=== PATIENT | female | born 1950 | race Caucasian/White ===

== ENCOUNTER → 2019-02-25 09:55 | Outpatient (CLI) | payer MEDICARE, OTHER, SELFPAY ==
--- NOTE | 2019-02-25 10:00 | DI.MG.S_ITS ---
BILATERAL DIGITAL SCREENING MAMMOGRAM 3D/2D WITH CAD: 02/25/2019 CLINICAL: Routine screening. Family history of breast cancer. Comparison is made to exams dated: 02/03/2017 mammogram, 09/13/2014 mammogram, and 07/26/2013 mammogram - [facility]. The tissue of both breasts is heterogeneously dense. This may lower the sensitivity of mammography. Current study was also evaluated with a Computer Aided Detection (CAD) system. There are benign calcifications in both breasts. No significant masses, calcifications, or other findings are seen in either breast. There has been no significant interval change. IMPRESSION: There is no mammographic evidence of malignancy. A 1 year screening mammogram is recommended. This exam was interpreted at Station ID: [id number]. NOTE: For mammograms, a report in lay terms will be sent to the patient. Approximately 15% of breast malignancies will not be visualized mammographically. In the management of a palpable breast mass, a negative mammogram must not discourage biopsy of a clinically suspicious lesion. Electronically Signed By: Sergio hair/deepak:02/27/2019 07:29:06 copy to: MABEL CORREA letter sent: Normal Exam ACR BI-RADS Category 2: Benign Finding(s) 3342F
== END ==
PROVIDERS: Family Provider Obstetrics & Gynecology; Visit Provider Physician Assistant Medical
DX: Z12.31 Encounter for screening mammogram for malignant neoplasm of breast (principal); Z80.3 Family history of malignant neoplasm of breast
CPT/HCPCS: 77063; 77067

== ENCOUNTER 2019-03-14 06:20 | Emergency (ER) | payer MEDICARE, OTHER, SELFPAY ==
[2019-03-14 06:16] VITALS: BP 158/81; PULSE 80; RESP 16; TEMP 36.9; O2SAT 97; BMI 33.8
--- NOTE | 2019-03-14 06:30 | DI.RAD.S_ITS ---
PROCEDURE: XR CHEST 1V INDICATIONS: New onset A fib TECHNIQUE: One view of the chest was acquired. COMPARISON: None. FINDINGS: Surgical changes and devices: None. Lungs and pleura: Lungs are clear. No pleural effusions or pneumothorax. Mediastinum: Mediastinal contours appear normal. Heart size is normal. Bones and chest wall: No suspicious bony lesions. Overlying soft tissues appear unremarkable. IMPRESSION: No acute cardiopulmonary disease process. Dictated by: Ping Jones MD, PhD on 03/14/2019 at 7:32 Approved by: Ping Jones MD, PhD on 03/14/2019 at 7:32
[2019-03-14] MEDS: ASPIRIN 81 MG TAB 324 MG PO (06:45)
--- NOTE | 2019-03-14 07:08 | ED.ARRPALP ---
HPI - Arrhythmia/Palpitations General Chief Complaint: Arrhythmia/Palpitations Stated Complaint: Palpitations Time Seen by Provider: 03/14/19 06:30 Source: patient and family Mode of arrival: ambulatory Limitations: no limitations History of Present Illness HPI narrative: 68-year-old female nonsmoker with history of hypertension presents with the chief complaint of palpitations upon waking this morning. She denies chest pain or shortness of breath. She denies any dietary or medication change. They called the paramedics and noted a newly discovered rapid atrial fibrillation which spontaneously resolved with insertion of an IV. She was brought to the emergency department for evaluation. She denies any dizziness, weakness or lightheadedness. MD complaint: rapid heart beat and palpitations Onset (ago): hour(s) Duration: now resolved Severity: moderate Context: occurred during rest Associated symptoms: denies other symptoms Related Data Home Medications Medication Instructions Recorded Confirmed losartan 25 mg PO QDAY #0 05/09/12 naproxen sodium 220 mg capsule 220 mg PO Q8-12H PRN 05/10/18 05/10/18 Allergies Allergy/AdvReac Type Severity Reaction Status Date / Time adhesive tape [ADHESIVE TAPE] Allergy Unknown Unverified 03/14/19 06:44 Review of Systems Constitutional Denies chills, Denies fever(s), Denies lethargy and Denies weakness Eyes Denies change in vision, Denies eye discharge, Denies irritation and Denies loss of vision ENT Ears, Nose, Mouth, and Throat: Denies change in voice, Denies neck pain and Denies sore throat Cardiovascular Denies chest pain, Reports irregular heart rhythm, Denies lightheadedness, Denies palpitations, Denies dyspnea, Denies dyspnea on exertion and Denies orthopnea Respiratory Denies cough, Denies dyspnea, Denies dyspnea on exertion and Denies wheezing Gastrointestinal Gastrointestinal: Denies abdominal pain, Denies change in bowel habits, Denies diarrhea, Denies nausea and Denies vomiting Genitourinary Denies hematuria, Denies flank pain, Denies urinary incontinence and Denies urinary urgency Musculoskeletal Denies neck pain Integumentary/Breasts Denies pruritus, Denies erythema, Denies rash and Denies wounds Neurologic Denies confusion, Denies loss of vision and Denies weakness Psychiatric Denies anxiety, Denies confusion, Denies depression, Denies homicidal ideation and Denies suicidal ideation Endocrine Denies palpitations Hematologic/Lymphatic Denies easy bruising Allergic/Immunologic Denies wheezing PFSH Medical History Hypertension (Chronic) Ovarian cancer (Resolved 2003) Surgical History History of third molar tooth extraction (Resolved 1974) S/P total abdominal hysterectomy and bilateral salpingo-oophorectomy (Resolved 2003) Status post laparoscopic cholecystectomy (Resolved 2002) Status post tubal ligation (Resolved 1987) Social History (System 05/06/18 @ 14:05 by Andrews Paul) Smoking Status: Never smoker Social History Smoking Status: Never smoker Exam Narrative Exam Narrative: GENERAL: 68-year-old female appears the counter than stated age, resting comfortably and in no significant distress HEAD: Atraumatic. Normocephalic. No temporal or scalp tenderness. EYES: Pupils equal round and reactive. Extraocular motions intact. No scleral icterus. No injection or drainage. ENT: Nose without bleeding, purulent drainage or septal hematoma. Throat without erythema, tonsillar hypertrophy or exudate. Uvula midline. Airway patent. NECK: Trachea midline. No JVD or lymphadenopathy. Supple, nontender, no meningeal signs. CARDIOVASCULAR: Regular rate and rhythm without murmurs, gallops, or rubs. RESPIRATORY: Clear to auscultation. Breath sounds equal bilaterally. No wheezes, rales, or rhonchi. GASTROINTESTINAL: Abdomen soft, non-tender, nondistended. No hepato-splenomegaly, or palpable masses. No guarding. EXTREMITIES: No clubbing, cyanosis, or edema. No joint tenderness, effusion, or edema noted. BACK: Nontender without deformity or crepitance. No flank tenderness. NEURO: AOx3. SKIN: No rash or erythema. Initial Vital Signs Initial Vital Signs: Vital Signs Temperature 98.4 F 03/14/19 06:16 Pulse Rate 80 03/14/19 06:16 Respiratory Rate 16 03/14/19 06:16 Blood Pressure 158/81 H 03/14/19 06:16 Pulse Oximetry 97 03/14/19 06:16 Scores CHADS-VASc Congestive heart failure: no Hypertension: yes Age 75 years or older: no Diabetes mellitus: no Stroke, TIA, or TE: no Vascular disease: no Age 65 to 74 years: yes Sex category (female): Female CHADS-VASc Score: 3 Course Orders Ordered: ED Orders 03/14/19 EKG-12 Lead Stat 03/14/19 06:30 XR chest 1V Stat EKG-12 Lead Stat 03/14/19 06:59 Basic Metabolic Panel Stat Complete Blood Count AUTO DIFF Stat Troponin & CK Cardiac Panel Stat 03/14/19 07:00 Urine Microscopic Stat Discontinued Medications Aspirin (Aspirin Chew) 324 mg PO NOW ONE Stop: 03/14/19 06:31 Last Admin: 03/14/19 06:45 Dose: 324 mg Vital Signs - 8 hr 03/14/19 06:16 03/14/19 07:35 Temperature 98.4 F Pulse Rate 80 63 Respiratory Rate 16 16 Blood Pressure 158/81 H Blood Pressure [Right Arm] 144/80 H Pulse Oximetry 97 98 MDM - Arrhythmia/Palpitations Lab Data Result diagrams: 03/14/19 06:59 03/14/19 06:59 Lab Results 03/14/19 03/14/19 03/14/19 Range/Units 06:59 06:59 07:00 WBC 5.0 (4.5-11.0) X10^3/uL RBC 4.94 (4.0-5.2) X10^6/uL Hgb 14.4 (12.0-16.0) g/dL Hct 42.7 (36-46) % MCV 86.5 (80-100) fL MCH 29.2 (26-34) PG MCHC 33.8 (30-36) % RDW 14.0 (11.6-14.8) % Plt Count 232 (150-400) X10^3/uL Neut % (Auto) 66.4 (50-75) % Lymph % (Auto) 24.7 L (25-40) % [place] % (Auto) 6.9 (3-14) % Eos % (Auto) 1.5 L (2-4) % Baso % (Auto) 0.5 (0-2) % Neut # (Auto) 3300 (1904-4367) /uL Lymph # (Auto) 1200 (5988-6762) /uL [place] # (Auto) 300 (0-900) /uL Eos # (Auto) 100 (0-450) /uL Baso # (Auto) 0 (0-100) /uL Sodium 141 (137-145) mmol/L Potassium 3.9 (3.4-5.1) mmol/L Chloride 105 (98-107) mmol/L Carbon Dioxide 25 (22-32) mmol/L BUN 14 (7-17) mg/dL Creatinine 0.80 (0.52-1.04) mg/dL Estimated GFR > 60.0 (>60) mL/min BUN/Creatinine Ratio 17.5 (6-22) Glucose 108 (80-110) mg/dL Calcium 10.2 (8.4-10.2) mg/dL Total Bilirubin Cancelled AST Cancelled ALT Cancelled Alkaline Phosphatase Cancelled Total Creatine Kinase 110 (30-135) U/L CK-MB (CK-2) 1.57 (<2.37) ng/mL CK-MB (CK-2) Rel Index 1.4 L (1.5-5.0) % Troponin I < 0.012 (0.01-0.034) ng/mL Total Protein Cancelled Albumin Cancelled Globulin Cancelled Albumin/Globulin Ratio Cancelled Lipase Cancelled Urine RBC None seen (0-5/HPF) Urine WBC None seen (0-5/HPF) Urine Bacteria Occasional (0-1) (None) Ur Culture Indicated? Cult not indicated Urine Dip Bedside Urine Glucose Negative Bedside Urine Bilirubin - Negative Bedside Urine Ketone +/- 5 Urine Specific [place] 1.015 Bedside Urine Occult Blood +/- Bedside Urine pH 6.0 Bedside Urine Protein - Negative Bedside Urine Urobilinogen - Negative Bedside Urine Nitrite - Negative Bedside Urine Leukocytes - Negative Esterase Imaging Data Chest x-ray: Radiologist's impression: [address] [address] XRay Report Signed Patient: Bethanie Barragan JMR#: [id number] : 2Acct:[id number] Age/Sex: 68 / FDate of Service: 03/14/19 Loc: ED Accession Number: [id number] Procedure: XR chest 1V Ordering Provider: Brandon Nunez MD PROCEDURE: XR CHEST 1V INDICATIONS: New onset A fib TECHNIQUE: One view of the chest was acquired. COMPARISON: None. FINDINGS: Surgical changes and devices: None. Lungs and pleura: Lungs are clear. No pleural effusions or pneumothorax. Mediastinum: Mediastinal contours appear normal. Heart size is normal. Bones and chest wall: No suspicious bony lesions. Overlying soft tissues appear unremarkable. IMPRESSION: No acute cardiopulmonary disease process. Dictated by: Ping Jones MD, PhD on 03/14/2019 at 7:32 Approved by: Ping Jones MD, PhD on 03/14/2019 at 7:32 [facility] Narrative Medical decision making narrative: 68-year-old female with newly discovered atrial fibrillation, spontaneously resolved prior to arrival. EKG sinus rhythm at 75 beats per minute without signs of ectopy or ischemia. Labs are unremarkable and patient remains asymptomatic. She already has an appointment to see her PCP this afternoon. We discussed the possibility of rate control as well as anticoagulation and both agreed to defer to the primary care provider this afternoon. I did state that 1 scoring system would suggest she needs aspirin only yet another would suggest anticoagulation is appropriate and to be prepared for this discussion this afternoon. She has been given appropriate return precautions and she and have had questions answered to their apparent satisfaction Discharge Plan Departure Patient Disposition: Home Clinical Impression: Atrial fibrillation Qualifiers: Atrial fibrillation type: paroxysmal Qualified Code(s): I48.0 - Paroxysmal atrial fibrillation Instructions: DI for Atrial Fibrillation Activity Restrictions/Additional Instructions: *You have been diagnosed with [ newly discovered Atrial Fibrillation ] *What to do: *Take medications as directed: At your visit you will likely talk about the potential of adding medications which control your heart rate. Additionally, there will be discussion about anticoagulation (blood thinners) and whether or not to start them. Additionally, they may want to perform additional studies to evaluate your new A Fib such as an echocardiogram. *Follow up with your primary care provider this afternoon as planned. Let them know you were seen in the Emergency Department and that we ask that you be seen in follow up *Return to ER if you should have any new, worsening or concerning symptoms ] Prescriptions: No Action losartan 25 MG tablet 25 mg PO QDAY Qty: 0 RF: 0 naproxen sodium [Aleve] 220 mg capsule 220 mg PO Q8-12H PRNRF: 0
[2019-03-14 07:11] LABS: Add Manual Diff / Slide Review NO; Basophils Absolute Auto 0 /uL (0-100); Basophils Percent Auto 0.5 % (0-2); Eosinophils Absolute Auto 100 /uL (0-450); Eosinophils Percent Auto 1.5 % (2-4); Hematocrit 42.7 % (36-46); Hemoglobin 14.4 g/dL (12.0-16.0); Lymphocytes Absolute Auto 1200 /uL (1100-4500); Lymphocytes Percent Auto 24.7 % (25-40); Mean Corpuscular HGB Conc 33.8 % (30-36); Mean Corpuscular Hemoglobin 29.2 PG (26-34); Mean Corpuscular Volume 86.5 fL (80-100); Monocytes Absolute Auto 300 /uL (0-900); Monocytes Percent Auto 6.9 % (3-14); Neutrophils Absolute Auto 3300 /uL (1500-7000); Neutrophils Percent Auto 66.4 % (50-75); Platelet Count 232 X10^3/uL (150-400); Red Blood Cell Count 4.94 X10^6/uL (4.0-5.2)
[2019-03-14 07:16] LABS: RBC Urine None Seen (0-5/HPF); WBC Urine None Seen (0-5/HPF)
[2019-03-14 07:17] LABS: BUN Creatinine Ratio 17.5 (6-22); Blood Urea Nitrogen 14 mg/dL (7-17); Calcium 10.2 mg/dL (8.4-10.2); Carbon Dioxide 25 mmol/L (22-32); Chloride 105 mmol/L (98-107); Creatine Kinase 110 U/L (30-135); Estimated Glomerular Filt Rate > 60.0 mL/min (>60); Glucose 108 mg/dL (80-110); HEMOLYSIS < 15 (0-50); Potassium 3.9 mmol/L (3.4-5.1); Sodium 141 mmol/L (137-145)
[2019-03-14 07:26] LABS: Bacteria Urine Occasional (0-1); Culture Indicated Urine Cult Not Indicated
[2019-03-14 07:29] LABS: Troponin I < 0.012 ng/mL (0.01-0.034)
[2019-03-14 07:32] LABS: CKMB % Relative Index 1.4 % (1.5-5.0); Creatine Kinase MB 1.57 ng/mL (<2.37)
[2019-03-14 07:35] VITALS: BP 144/80; PULSE 63; RESP 16; O2SAT 98
--- NOTE | 2019-03-14 07:37 | ED_ITS ---
HPI - Arrhythmia/Palpitations General Chief Complaint: Arrhythmia/Palpitations Stated Complaint: Palpitations Time Seen by Provider: 03/14/19 06:30 Source: patient and family Mode of arrival: ambulatory Limitations: no limitations History of Present Illness HPI narrative: 68-year-old female nonsmoker with history of hypertension presents with the chief complaint of palpitations upon waking this morning. She denies chest pain or shortness of breath. She denies any dietary or medication change. They called the paramedics and noted a newly discovered rapid atrial fibrillation which spontaneously resolved with insertion of an IV. She was brought to the emergency department for evaluation. She denies any dizziness, weakness or lightheadedness. MD complaint: rapid heart beat and palpitations Onset (ago): hour(s) Duration: now resolved Severity: moderate Context: occurred during rest Associated symptoms: denies other symptoms Related Data Home Medications Medication Instructions Recorded Confirmed losartan 25 mg PO QDAY #0 05/09/12 naproxen sodium 220 mg capsule 220 mg PO Q8-12H PRN 05/10/18 05/10/18 Allergies Allergy/AdvReac Type Severity Reaction Status Date / Time adhesive tape [ADHESIVE TAPE] Allergy Unknown Unverified 03/14/19 06:44 Review of Systems Constitutional Denies chills, Denies fever(s), Denies lethargy and Denies weakness Eyes Denies change in vision, Denies eye discharge, Denies irritation and Denies loss of vision ENT Ears, Nose, Mouth, and Throat: Denies change in voice, Denies neck pain and Denies sore throat Cardiovascular Denies chest pain, Reports irregular heart rhythm, Denies lightheadedness, Denies palpitations, Denies dyspnea, Denies dyspnea on exertion and Denies orthopnea Respiratory Denies cough, Denies dyspnea, Denies dyspnea on exertion and Denies wheezing Gastrointestinal Gastrointestinal: Denies abdominal pain, Denies change in bowel habits, Denies diarrhea, Denies nausea and Denies vomiting Genitourinary Denies hematuria, Denies flank pain, Denies urinary incontinence and Denies urinary urgency Musculoskeletal Denies neck pain Integumentary/Breasts Denies pruritus, Denies erythema, Denies rash and Denies wounds Neurologic Denies confusion, Denies loss of vision and Denies weakness Psychiatric Denies anxiety, Denies confusion, Denies depression, Denies homicidal ideation and Denies suicidal ideation Endocrine Denies palpitations Hematologic/Lymphatic Denies easy bruising Allergic/Immunologic Denies wheezing PFSH Medical History Hypertension (Chronic) Ovarian cancer (Resolved 2003) Surgical History History of third molar tooth extraction (Resolved 1974) S/P total abdominal hysterectomy and bilateral salpingo-oophorectomy (Resolved 2003) Status post laparoscopic cholecystectomy (Resolved 2002) Status post tubal ligation (Resolved 1987) Social History (System 05/06/18 @ 14:05 by Andrews Paul) Smoking Status: Never smoker Social History Smoking Status: Never smoker Exam Narrative Exam Narrative: GENERAL: 68-year-old female appears the counter than stated age, resting comfortably and in no significant distress HEAD: Atraumatic. Normocephalic. No temporal or scalp tenderness. EYES: Pupils equal round and reactive. Extraocular motions intact. No scleral icterus. No injection or drainage. ENT: Nose without bleeding, purulent drainage or septal hematoma. Throat without erythema, tonsillar hypertrophy or exudate. Uvula midline. Airway patent. NECK: Trachea midline. No JVD or lymphadenopathy. Supple, nontender, no meningeal signs. CARDIOVASCULAR: Regular rate and rhythm without murmurs, gallops, or rubs. RESPIRATORY: Clear to auscultation. Breath sounds equal bilaterally. No wheezes, rales, or rhonchi. GASTROINTESTINAL: Abdomen soft, non-tender, nondistended. No hepato- splenomegaly, or palpable masses. No guarding. EXTREMITIES: No clubbing, cyanosis, or edema. No joint tenderness, effusion, or edema noted. BACK: Nontender without deformity or crepitance. No flank tenderness. NEURO: AOx3. SKIN: No rash or erythema. Initial Vital Signs Initial Vital Signs: Vital Signs Temperature 98.4 F 03/14/19 06:16 Pulse Rate 80 03/14/19 06:16 Respiratory Rate 16 03/14/19 06:16 Blood Pressure 158/81 H 03/14/19 06:16 Pulse Oximetry 97 03/14/19 06:16 Scores CHADS-VASc Congestive heart failure: no Hypertension: yes Age 75 years or older: no Diabetes mellitus: no Stroke, TIA, or TE: no Vascular disease: no Age 65 to 74 years: yes Sex category (female): Female CHADS-VASc Score: 3 Course Orders Ordered: ED Orders 03/14/19 EKG-12 Lead Stat 03/14/19 06:30 XR chest 1V Stat EKG-12 Lead Stat 03/14/19 06:59 Basic Metabolic Panel Stat Complete Blood Count AUTO DIFF Stat Troponin & CK Cardiac Panel Stat 03/14/19 07:00 Urine Microscopic Stat Discontinued Medications Aspirin (Aspirin Chew) 324 mg PO NOW ONE Stop: 03/14/19 06:31 Last Admin: 03/14/19 06:45 Dose: 324 mg Vital Signs - 8 hr 03/14/19 06:16 03/14/19 07:35 Temperature 98.4 F Pulse Rate 80 63 Respiratory Rate 16 16 Blood Pressure 158/81 H Blood Pressure [Right Arm] 144/80 H Pulse Oximetry 97 98 MDM - Arrhythmia/Palpitations Lab Data Result diagrams: 03/14/19 06:59 03/14/19 06:59 Lab Results 03/14/19 03/14/19 03/14/19 Range/Units 06:59 06:59 07:00 WBC 5.0 (4.5-11.0) X10^3/uL RBC 4.94 (4.0-5.2) X10^6/uL Hgb 14.4 (12.0-16.0) g/dL Hct 42.7 (36-46) % MCV 86.5 (80-100) fL MCH 29.2 (26-34) PG MCHC 33.8 (30-36) % RDW 14.0 (11.6-14.8) % Plt Count 232 (150-400) X10^3/uL Neut % (Auto) 66.4 (50-75) % Lymph % (Auto) 24.7 L (25-40) % [place] % (Auto) 6.9 (3-14) % Eos % (Auto) 1.5 L (2-4) % Baso % (Auto) 0.5 (0-2) % Neut # (Auto) 3300 (1771-0557) /uL Lymph # (Auto) 1200 (6769-1725) /uL [place] # (Auto) 300 (0-900) /uL Eos # (Auto) 100 (0-450) /uL Baso # (Auto) 0 (0-100) /uL Sodium 141 (137-145) mmol/L Potassium 3.9 (3.4-5.1) mmol/L Chloride 105 (98-107) mmol/L Carbon Dioxide 25 (22-32) mmol/L BUN 14 (7-17) mg/dL Creatinine 0.80 (0.52-1.04) mg/dL Estimated GFR > 60.0 (>60) mL/min BUN/Creatinine Ratio 17.5 (6-22) Glucose 108 (80-110) mg/dL Calcium 10.2 (8.4-10.2) mg/dL Total Bilirubin Cancelled AST Cancelled ALT Cancelled Alkaline Phosphatase Cancelled Total Creatine Kinase 110 (30-135) U/L CK-MB (CK-2) 1.57 (<2.37) ng/mL CK-MB (CK-2) Rel Index 1.4 L (1.5-5.0) % Troponin I < 0.012 (0.01-0.034) ng/mL Total Protein Cancelled Albumin Cancelled Globulin Cancelled Albumin/Globulin Ratio Cancelled Lipase Cancelled Urine RBC None seen (0-5/HPF) Urine WBC None seen (0-5/HPF) Urine Bacteria Occasional (0-1) (None) Ur Culture Indicated? Cult not indicated Urine Dip Bedside Urine Glucose Negative Bedside Urine Bilirubin - Negative Bedside Urine Ketone +/- 5 Urine Specific [place] 1.015 Bedside Urine Occult Blood +/- Bedside Urine pH 6.0 Bedside Urine Protein - Negative Bedside Urine Urobilinogen - Negative Bedside Urine Nitrite - Negative Bedside Urine Leukocytes - Negative Esterase Imaging Data Chest x-ray: Radiologist's impression: [address] [address] XRay Report Signed Patient: Bethanie Barragan JMR#: [id number] : 2Acct:[id number] Age/Sex: 68 / FDate of Service: 03/14/19 Loc: ED Accession Number: [id number] Procedure: XR chest 1V Ordering Provider: Brandon Nunez MD PROCEDURE: XR CHEST 1V INDICATIONS: New onset A fib TECHNIQUE: One view of the chest was acquired. COMPARISON: None. FINDINGS: Surgical changes and devices: None. Lungs and pleura: Lungs are clear. No pleural effusions or pneumothorax. Mediastinum: Mediastinal contours appear normal. Heart size is normal. Bones and chest wall: No suspicious bony lesions. Overlying soft tissues appear unremarkable. IMPRESSION: No acute cardiopulmonary disease process. Dictated by: Ping Jones MD, PhD on 03/14/2019 at 7:32 Approved by: Ping Jones MD, PhD on 03/14/2019 at 7:32 [facility] Narrative Medical decision making narrative: 68-year-old female with newly discovered atrial fibrillation, spontaneously resolved prior to arrival. EKG sinus rhythm at 75 beats per minute without signs of ectopy or ischemia. Labs are unremarkable and patient remains asymptomatic. She already has an appointment to see her PCP this afternoon. We discussed the possibility of rate control as well as anticoagulation and both agreed to defer to the primary care provider this afternoon. I did state that 1 scoring system would suggest she needs aspirin only yet another would suggest anticoagulation is appropriate and to be prepared for this discussion this afternoon. She has been given appropriate return precautions and she and have had questions answered to their apparent satisfaction Discharge Plan Departure Patient Disposition: Home Clinical Impression: Atrial fibrillation Qualifiers: Atrial fibrillation type: paroxysmal Qualified Code(s): I48.0 - Paroxysmal atrial fibrillation Instructions: DI for Atrial Fibrillation Activity Restrictions/Additional Instructions: *You have been diagnosed with [ newly discovered Atrial Fibrillation ] *What to do: *Take medications as directed: At your visit you will likely talk about the potential of adding medications which control your heart rate. Additionally, there will be discussion about anticoagulation (blood thinners) and whether or not to start them. Additionally, they may want to perform additional studies to evaluate your new A Fib such as an echocardiogram. *Follow up with your primary care provider this afternoon as planned. Let them know you were seen in the Emergency Department and that we ask that you be seen in follow up *Return to ER if you should have any new, worsening or concerning symptoms ] Prescriptions: No Action losartan 25 MG tablet 25 mg PO QDAY Qty: 0 RF: 0 naproxen sodium [Aleve] 220 mg capsule 220 mg PO Q8-12H PRNRF: 0
== END 2019-03-14 08:14 | disposition home or self-care (01) ==
PROVIDERS: Emergency Medicine; Emergency Provider Emergency Medicine; Family Provider Obstetrics & Gynecology
DX: I48.0 Paroxysmal atrial fibrillation (principal)
CPT/HCPCS: 36415; 71045; 80048; 81003; 81015; 82550; 82553; 84484; 85025; 93005; 93010; 99283; 99285

== ENCOUNTER 2020-09-12 02:01 | Emergency (ER) | payer MEDICARE, OTHER, SELFPAY ==
[2020-09-12] VITALS (13 sets, daily range): BP systolic 125–176; BP diastolic 70–135; PULSE 62–150; RESP 17–27; O2SAT 97–99
--- NOTE | 2020-09-12 02:06 | ED.ARRPALP ---
HPI - Arrhythmia/Palpitations General Chief Complaint: Arrhythmia/Palpitations Stated Complaint: states is in afib Time Seen by Provider: 09/12/20 02:05 History of Present Illness HPI narrative: 69-year-old woman with a history of ovarian cancer 15 years ago and a single episode of atrial fibrillation approximately year and half ago presents with atrial fibrillation that started at 12:30 p.m. this morning she got up from bed to go to the bathroom as she was going back into bed noticed her heart fluttering. This was not associated with chest pain, dyspnea or abdominal pain. She denies any recent fevers, cough, chills, abdominal pain, urinary symptoms. She has had no recent dyspnea, orthopnea. She notes that she recently stopped her 12.5 mg of metoprolol and was never on an anticoagulant. She had been on a baby aspirin. She is followed by a providers it would be health and does not have a customer support professional established home. Related Data Home Medications Medication Instructions Recorded Confirmed losartan 25 mg PO QDAY #0 05/09/12 naproxen sodium 220 mg capsule 220 mg PO Q8-12H PRN 05/10/18 05/10/18 Previous Rx's Medication Instructions Recorded carvedilol [Coreg] 3.125 mg PO BID #60 tab 09/12/20 Allergies Allergy/AdvReac Type Severity Reaction Status Date / Time adhesive tape [ADHESIVE TAPE] Allergy Unknown Unverified 03/14/19 06:44 Review of Systems Review of Systems Narrative: Remainder of review of systems including constitutional, ENT, cardiovascular, respiratory, GI, , musculoskeletal, skin, neurologic and psychiatric systems reviewed and are unremarkable except as noted in HPI. Patient History Medical History Hypertension (Chronic) Ovarian cancer (Resolved 2003) Paroxysmal atrial fibrillation (Acute) Surgical History History of third molar tooth extraction (Resolved 1974) S/P total abdominal hysterectomy and bilateral salpingo-oophorectomy (Resolved 2003) Status post laparoscopic cholecystectomy (Resolved 2002) Status post tubal ligation (Resolved 1987) Social History Smoking Status: Never smoker Smoking Status: Never smoker Substance Use Type: does not use Exam Narrative Exam Narrative: General: Healthy appearing, in no acute distress. Able to give a complete and coherent history. Well-nourished well-developed HEENT: Moist mucous membranes, normal sclera with reactive pupils, Neck: No JVD, supple Respiratory: Lungs are clear to auscultation, no wheezing no rales no rhonchi. Full and symmetrical air movement Cardiac: Regular rate and rhythm no murmurs no bruits Abdomen: Soft nontender good bowel tones, no flank pain Skin: Warm and dry, no rashes Neurologic: Grossly neurologically intact with no obvious asymmetries or abnormalities Extremities: No trauma, well perfused Psych: Cooperative, appropriate insight and affect Initial Vital Signs Initial Vital Signs: Vital Signs Pulse Rate 150 H 09/12/20 02:05 Respiratory Rate 20 09/12/20 02:05 Blood Pressure 171/135 H 09/12/20 02:05 Pulse Oximetry 98 09/12/20 02:05 Procedures Cardioversion Consent Signed: Yes Indication: Atrial fibrillation with rapid ventricular response Stability: Stable Number of attempts (shocks): 1 Joules used: 100 (Synchronized) Cardiac rhythm post-cardioversion: Sinus rhythm Additional Comments: Tolerated well Procedural Sedation Consent signed: Yes Time out performed: Yes Indication: cardioversion ASA Class: II Mallampati Airway Classification: Class II Time of Last PO Intake: 19:00 Preparation: monitoring and evaluation advisor applied, pulse oximeter, capnometry used, suction/airway equipment at bedside and IV secured IV Propofol dose (mg): 40 Intraservice time/total sedation time (min): 7 ED Sedation Level: Moderate (Concious) Patient Tolerated Procedure: Well Complications: none Course Orders Ordered: ED Orders 09/12/20 02:15 XR chest 1V Stat Complete Blood Count AUTO DIFF Stat Comprehensive Metabolic Panel Stat Magnesium Stat Thyroid Stimulating Hormone Stat Troponin & CK Cardiac Panel Stat EKG-12 Lead Stat Discontinued Medications Sodium Chloride (Normal Saline 0.9%) 1,000 mls @ 150 mls/hr IV CONT ZAINA Last Infusion: 09/12/20 04:53 Dose: 0 mls/hr Documented by: Admin: 09/12/20 02:23 Dose: 150 mls/hr Documented by: FAWAD Metoprolol Tartrate (Lopressor) 5 mg IV NOW ONE Stop: 09/12/20 02:16 Last Admin: 09/12/20 02:22 Dose: 5 mg Documented by: FAWAD Propofol (Diprivan) 40 mg 0.5 mg/kg (40 mg) IV NOW ONE Stop: 09/12/20 03:36 Last Admin: 09/12/20 03:52 Dose: 40 mg Documented by: WERO Vital Signs Vital signs: Vital Signs - 8 hr 09/12/20 02:05 09/12/20 02:37 09/12/20 03:00 Pulse Rate 150 H 92 H 83 Respiratory Rate 20 18 18 Blood Pressure 171/135 H 176/80 H 140/97 H Pulse Oximetry 98 98 98 09/12/20 03:45 09/12/20 03:46 09/12/20 03:50 Pulse Rate 136 H 137 H 143 H Respiratory Rate 22 25 H 26 H Blood Pressure 174/97 H 165/96 H Pulse Oximetry 98 98 99 09/12/20 03:55 09/12/20 04:00 09/12/20 04:06 Pulse Rate 76 71 67 Respiratory Rate 25 H 27 H 23 Blood Pressure 144/70 H 141/75 H 139/86 Pulse Oximetry 98 98 98 09/12/20 04:10 09/12/20 04:15 09/12/20 04:20 Pulse Rate 66 64 62 Respiratory Rate 17 20 20 Blood Pressure 136/79 125/80 132/79 Pulse Oximetry 98 99 99 09/12/20 04:25 Pulse Rate 64 Respiratory Rate 19 Blood Pressure 130/80 Pulse Oximetry 97 MDM - Arrhythmia/Palpitations Medical Records Attestation: I reviewed the patient's medical records. Lab Data Attestation: I reviewed the patient's lab results. Result diagrams: 09/12/20 02:15 09/12/20 02:15 Labs: Lab Results 09/12/20 09/12/20 09/12/20 Range/Units 02:15 02:15 02:15 WBC 7.5 (4.5-11.0) X10^3/uL RBC 5.07 (4.0-5.2) X10^6/uL Hgb 14.6 (12.0-16.0) g/dL Hct 44.3 (36-46) % MCV 87.4 (80-100) fL MCH 28.9 (26-34) PG MCHC 33.0 (30-36) % RDW 14.9 H (11.6-14.8) % Plt Count 230 (150-400) X10^3/uL Neut % (Auto) 58.1 (50-75) % Lymph % (Auto) 31.8 (25-40) % [place] % (Auto) 7.5 (3-14) % Eos % (Auto) 2.0 (2-4) % Baso % (Auto) 0.6 (0-2) % Neut # (Auto) 4400 (9801-6882) /uL Lymph # (Auto) 2400 (9826-9180) /uL [place] # (Auto) 600 (0-900) /uL Eos # (Auto) 100 (0-450) /uL Baso # (Auto) 0 (0-100) /uL Sodium 140 (137-145) mmol/L Potassium 4.0 (3.4-5.1) mmol/L Chloride 107 (98-107) mmol/L Carbon Dioxide 28 (22-32) mmol/L BUN 24 H (7-17) mg/dL Creatinine 0.86 (0.52-1.04) mg/dL Estimated GFR > 60.0 (>60) mL/min BUN/Creatinine Ratio 27.9 H (6-22) Glucose 111 H (80-110) mg/dL Calcium 10.2 (8.4-10.2) mg/dL Magnesium 2.3 (1.6-2.3) mg/dL Total Bilirubin 0.6 (0.2-1.3) mg/dL AST 31 (14-36) IU/L ALT 27 (<35) IU/L Alkaline Phosphatase 74 (38-126) U/L Total Creatine Kinase 134 (30-135) U/L CK-MB (CK-2) 1.81 (<2.37) ng/mL CK-MB (CK-2) Rel Index 1.4 L (1.5-5.0) % Troponin I < 0.012 (0.01-0.034) ng/mL Total Protein 8.1 (6.3-8.2) g/dL Albumin 4.5 (3.5-5.0) g/dL Globulin 3.6 (1.7-4.1) g/dL Albumin/Globulin Ratio 1.3 (1.0-2.8) TSH 4.03 (0.47-4.68) uIU/mL Point of Care Testing Test Results Not applicable ECG Data Attestation: I personally reviewed and interpreted this ECG as follows: Interpretation: Atrial fibrillation at a rate of [address] T wave abnormalities No acute ischemia #2 post Electrical Cardioversion: Sinus rhythm at a rate of 74 Normal axis, normal interval No acute ischemic changes MDM Narrative Medical decision making narrative: 69-year-old woman with acute onset paroxysmal atrial fibrillation at 12:30 p.m. tonight. Labs are unremarkable and she remains in a rapid ventricular response after 3 hours of observation. After consent was obtained, adequate sedation achieved with 40 mg of propofol, synchronized shock was administered with conversion to sinus rhythm. Patient tolerated well. After adequate conscious sedation recovery time she is discharged home in stable condition. Discharge Plan Departure Patient Disposition: Home Clinical Impression: Paroxysmal atrial fibrillation Discharge Date/Time: 09/12/20 04:40 Instructions: DI for Atrial Fibrillation, DI for Moderate Sedation Activity Restrictions/Additional Instructions: Thank you for coming in this evening We had a shockingly good experience today ;) You were in atrial fibrillation again at a rate of about 150. You are tolerating it well however with the acute onset very clearly identified at 12:30 p.m. this evening urine excellent candidate for cardioversion. This was done without incident and you are now back in normal sinus rhythm. You will also benefit from restarting the beta min. Since you had difficulties with side effects for the metoprolol am going to suggest we try Coreg at 3.25 mg a.m. and p.m.. 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 You also need to restart taking a baby aspirin daily. If you feel yourself returning to a fluttery feeling, recurrent atrial fibrillation please return to the emergency department. You will need to follow-up with your primary care physician within the next 1-2 weeks. Please let them know that you have started Coreg I wish you the best Prescriptions: New carvedilol [Coreg] 3.125 mg tablet 3.125 mg PO BID Qty: 60 RF: 0 No Action losartan 25 MG tablet 25 mg PO QDAY Qty: 0 RF: 0 naproxen sodium [Aleve] 220 mg capsule 220 mg PO Q8-12H PRNRF: 0
--- NOTE | 2020-09-12 02:15 | DI.RAD.S_ITS ---
PROCEDURE: XR CHEST 1V INDICATIONS: new afib TECHNIQUE: One view of the chest was acquired. COMPARISON: [facility], CR, XR CHEST 1V, 03/14/2019, 6:41. FINDINGS: Surgical changes and devices: None. Lungs and pleura: Lungs are clear. No pleural effusions or pneumothorax. Mediastinum: Mediastinal contours appear normal. Heart size is normal. Bones and chest wall: No suspicious bony lesions. Overlying soft tissues appear unremarkable. IMPRESSION: Normal for age, source of current atrial fibrillation symptoms is not seen. Dictated by: Noel Ryan M.D. on 09/12/2020 at 8:47 Approved by: Noel Ryan M.D. on 09/12/2020 at 8:47
[2020-09-12] MEDS: METOPROLOL TARTRATE 5 MG/5 ML INJ IV (02:22)
[2020-09-12] MEDS: SODIUM CHLORIDE 0.9% 1,000 ML 150 ML IV (02:23)
[2020-09-12 02:26] LABS: Add Manual Diff / Slide Review NO; Basophils Absolute Auto 0 /uL (0-100); Basophils Percent Auto 0.6 % (0-2); Eosinophils Absolute Auto 100 /uL (0-450); Hematocrit 44.3 % (36-46); Hemoglobin 14.6 g/dL (12.0-16.0); Lymphocytes Absolute Auto 2400 /uL (1100-4500); Lymphocytes Percent Auto 31.8 % (25-40); Mean Corpuscular Hemoglobin 28.9 PG (26-34); Mean Corpuscular Volume 87.4 fL (80-100); Monocytes Absolute Auto 600 /uL (0-900); Monocytes Percent Auto 7.5 % (3-14); Neutrophils Absolute Auto 4400 /uL (1500-7000); Neutrophils Percent Auto 58.1 % (50-75); Platelet Count 230 X10^3/uL (150-400); Red Blood Cell Count 5.07 X10^6/uL (4.0-5.2); Red Cell Distribution Width 14.9 % (11.6-14.8); White Blood Cell Count 7.5 X10^3/uL (4.5-11.0)
[2020-09-12 02:46] LABS: Alanine Aminotransferase 27 IU/L (<35); Albumin 4.5 g/dL (3.5-5.0); Albumin Globulin Ratio 1.3 (1.0-2.8); Alkaline Phosphatase 74 U/L (38-126); Aspartate Aminotransferase 31 IU/L (14-36); BUN Creatinine Ratio 27.9 (6-22); Bilirubin Total 0.6 mg/dL (0.2-1.3); Blood Urea Nitrogen 24 mg/dL (7-17); Calcium 10.2 mg/dL (8.4-10.2); Carbon Dioxide 28 mmol/L (22-32); Chloride 107 mmol/L (98-107); Creatine Kinase 134 U/L (30-135); Estimated Glomerular Filt Rate > 60.0 mL/min (>60); Globulin 3.6 g/dL (1.7-4.1); Glucose 111 mg/dL (80-110); HEMOLYSIS 25 (0-50); Magnesium 2.3 mg/dL (1.6-2.3); Sodium 140 mmol/L (137-145); Total Protein 8.1 g/dL (6.3-8.2)
[2020-09-12 02:58] LABS: Troponin I < 0.012 ng/mL (0.01-0.034)
[2020-09-12 03:02] LABS: CKMB % Relative Index 1.4 % (1.5-5.0); Creatine Kinase MB 1.81 ng/mL (<2.37)
[2020-09-12 03:17] LABS: Thyroid Stimulating Hormone 4.03 uIU/mL (0.47-4.68)
[2020-09-12] MEDS: propofoL 200 MG/20 ML VIAL 40 MG IV (03:52)
== END 2020-09-12 04:40 | disposition home or self-care (01) ==
PROVIDERS: Emergency Provider Emergency Medicine; Family Provider Obstetrics & Gynecology
DX: I48.0 Paroxysmal atrial fibrillation (principal); Z79.01 Long term (current) use of anticoagulants
CPT/HCPCS: 36415; 71045; 80053; 82550; 82553; 83735; 84443; 84484; 85025; 92960; 93005; 96361; 96374; 99285; 99291; J2704

== ENCOUNTER → 2021-08-25 12:20 | Outpatient (CLI) | payer MEDICARE, OTHER, SELFPAY ==
--- NOTE | 2021-08-25 12:21 | DI.MG.S_ITS ---
BILATERAL DIGITAL SCREENING MAMMOGRAM 3D/2D WITH CAD: 08/25/2021 CLINICAL: Routine screening. Family history of breast cancer. Comparison is made to exams dated: 02/25/2019 mammogram, 02/03/2017 mammogram, and 09/13/2014 mammogram - [facility]. The tissue of both breasts is heterogeneously dense. This may lower the sensitivity of mammography. Current study was also evaluated with a Computer Aided Detection (CAD) system. There are benign calcifications in both breasts. There also are benign vascular calcifications in both breasts. No significant masses, calcifications, or other findings are seen in either breast. There has been no significant interval change. IMPRESSION: BENIGN There is no mammographic evidence of malignancy. A 1 year screening mammogram is recommended. This exam was interpreted at Station ID: [id number]. NOTE: For mammograms, a report in lay terms will be sent to the patient. Approximately 15% of breast malignancies will not be visualized mammographically. In the management of a palpable breast mass, a negative mammogram must not discourage biopsy of a clinically suspicious lesion. Electronically Signed By: Cherie farfan/deepak:08/25/2021 15:03:03 copy to: MABEL CORREA letter sent: Normal Exam ACR BI-RADS Category 2: Benign Finding(s) 3342F
== END ==
PROVIDERS: Family Provider Obstetrics & Gynecology; Referring Provider Obstetrics & Gynecology; Visit Provider Obstetrics & Gynecology
DX: Z12.31 Encounter for screening mammogram for malignant neoplasm of breast (principal); Z80.3 Family history of malignant neoplasm of breast
CPT/HCPCS: 77063; 77067

== ENCOUNTER → 2023-09-18 09:36 | Outpatient (CLI) | payer MEDICARE, OTHER, SELFPAY ==
--- NOTE | 2023-09-18 09:37 | DI.MG.S_ITS ---
BILATERAL DIGITAL SCREENING MAMMOGRAM 3D/2D WITH CAD: 09/18/2023 CLINICAL: Routine screening. Family history of breast cancer. Comparison is made to exams dated: 08/25/2021 mammogram, 02/25/2019 mammogram, and 02/03/2017 mammogram - [facility]. Both breasts are heterogeneously dense, which may obscure small masses (category c / 51-75% glandular tissue). Current study was also evaluated with a Computer Aided Detection (CAD) system. No significant masses, calcifications, or other findings are seen in either breast. IMPRESSION: NEGATIVE There is no mammographic evidence of malignancy. A 1 year screening mammogram is recommended. Based on the Tyrer Cuzick model (a risk assessment model) the patient's lifetime risk is 14.9% and her 10 year risk is 10.3%. According to the ACR, ACS, and NCCN guidelines, an annual breast MRI exam along with mammogram is recommended if the patient's lifetime risk is 20% or greater. This exam was interpreted at Station ID: [id number]. NOTE: For mammograms, a report in lay terms will be sent to the patient. Approximately 15% of breast malignancies will not be visualized mammographically. In the management of a palpable breast mass, a negative mammogram must not discourage biopsy of a clinically suspicious lesion. Electronically Signed By: Allyn Dow M.D., PH.D mary/deepak:09/20/2023 22:46:04 copy to: MABEL CORREA letter sent: Normal Exam ACR BI-RADS Category 1: Negative 3341F
== END ==
PROVIDERS: Family Provider Obstetrics & Gynecology; PCP Physician Assistant; Referring Provider Physician Assistant; Visit Provider Physician Assistant
DX: Z12.31 Encounter for screening mammogram for malignant neoplasm of breast (principal); Z80.3 Family history of malignant neoplasm of breast
CPT/HCPCS: 77063; 77067

== ENCOUNTER 2023-11-24 11:43 | Day surgery (SDC) | payer MEDICARE, OTHER, SELFPAY ==
--- NOTE | 2023-11-24 | PATH_ITS ---
[facility] Accession Number: [id number] No. of containers..01 Tissue . 01 Material submitted: . colon - SIGMOID COLON . 01 Diagnosis: Designated Sigmoid Colon, Biopsy: Squamous mucosa with no diagnostic abnormality. No colonic mucosa present; please see comment. Negative for active inflammation, granulomas, dysplasia or malignancy. MRV 11/30/2023 1638 Local . 01 Comment: The incomplete colonoscopy with difficulty passing the colonscope is noted. The features are suggestive of sampling of anal mucosa. . The findings in this case were discussed between Dr. Jacobson and Dr. Juan on 11/30/2023 at 2:30 p.m. . 01 Electronically signed: . Hollis Jacobson MD, PhD, Pathologist NPI- [id number] . 01 Gross description: . SIGMOID COLON: Received in formalin are 2 fragment(s) of benitez, soft tissue measuring 0.2 x 0.2 x 0.1 cm to 0.3 x 0.3 x 0.1 cm submitted entirely in 1 cassette(s) /PRUDENCE 11/25/20232012 Local . 01 Pathologist provided ICD-10: R19.7 . 01 CPT . 937491 Specimen Comment: A courtesy copy of this report has been sent to [phone] Performed at: 01 [facility] [address] [place] [address], [place], [place] [id number] MD Ulysses Suh MD Phone: [phone]
[2023-11-24 12:34] VITALS: BP 130/84; PULSE 71; RESP 18; TEMP 36.8; O2SAT 96
[2023-11-24] MEDS: LACTATED RINGERS 1,000 ML 42 ML IV (12:37)
--- NOTE | 2023-11-24 12:44 | P.HP_ITS ---
History of Present Illness History of Present Illness Chief complaint: Colonoscopy Narrative: Loose stools and bloating [facility] Medical History (Updated 07/01/21 @ 12:36 by Day Lucas MD) Paroxysmal atrial fibrillation Hypertension Ovarian cancer (2003) Surgical History Status post tubal ligation (1987) Status post laparoscopic cholecystectomy (2002) History of third molar tooth extraction (1974) S/P total abdominal hysterectomy and bilateral salpingo-oophorectomy (2003) Social History Smoking Status: Never smoker alcohol intake: never Meds Home Medications and Allergies Home Medications Medication Instructions Recorded Confirmed Type losartan 25 mg tablet 25 mg PO QDAY ##0 05/09/12 11/24/23 History naproxen sodium 220 mg capsule 220 mg PO Q8-12H PRN Pain, Moderate 05/10/18 11/24/23 History (Aleve) carvedilol 3.125 mg tablet (Coreg) 3.125 mg PO BID #60 tabs 09/12/20 11/24/23 Rx Allergies Allergy/AdvReac Type Severity Reaction Status Date / Time adhesive tape [ADHESIVE TAPE] Allergy Unknown Verified 11/24/23 12:18 Exam Vital Signs (past 8 hours): - 11/24/23 12:34 Temperature 98.2 F Pulse Rate 71 Respiratory Rate 18 Blood Pressure 130/84 Pulse Oximetry 96 Oxygen Delivery Method Room Air Oxygen Delivery Method Room Air Narrative Exam Narrative: Oropharynx free of lesions Chest clear to auscultation percussion Cardiac exam reveals no S3 or murmur Assessment & Plan Assessment & Plan narrative: Loose stools need for screening colonoscopy and biopsies to rule out microscopic colitis. Risks, benefits, alternatives have been explained.
--- NOTE | 2023-11-24 12:45 | PM.OP.COLON ---
Operative Date/Time/Diagnoses Date of procedure: 11/24/23 Pre-op diagnosis: See indication and findings Procedure & Clinicians Study performed: Colonoscopy with biopsy Indications: Loose stools Surgeon: Moiz Juan Procedure Notes Procedure in detail: After informed consent was obtained the patient was placed in left lateral decubitus position. The video colonoscope was introduced the rectum slowly advanced. Unfortunately the sigmoid colon was very difficult to pass and after trying multiple maneuvers and spending a good deal of time procedure was aborted. Biopsies were taken in the sigmoid to rule out microscopic colitis.. Preparation was good. On slow withdrawal mucosa was carefully examined. The scope was removed. The patient tolerated procedure well. Blood loss none Complications none Sedation mac Findings 1. Incomplete colonoscopy due to very difficult to pass sigmoid colon. Biopsies taken to rule out microscopic colitis Patient should call Dr. Arciniega's office for next steps.
[2023-11-24 13:49] VITALS: BP 106/71; PULSE 64; RESP 18; TEMP 36.6; O2SAT 90
[2023-11-24 13:53] VITALS: BP 121/80; PULSE 67; RESP 16; O2SAT 94
[2023-11-24 13:58] VITALS: BP 121/82; PULSE 66; RESP 18; O2SAT 95
[2023-11-24 14:03] VITALS: BP 138/85; PULSE 64; RESP 18; TEMP 37.4; O2SAT 96
[2023-11-24 14:08] VITALS: BP 137/87; PULSE 62; RESP 18; O2SAT 95
== END 2023-11-24 14:19 | disposition home or self-care (01) ==
PROVIDERS: Family Provider Obstetrics & Gynecology; PCP Physician Assistant; Referring Provider Internal Medicine Gastroenterology; Visit Provider Internal Medicine Gastroenterology
PROC: 0DJD8ZZ Inspection of Lower Intestinal Tract, Via Natural or Artificial Opening Endoscopic (ICD-10-PCS; CPT 45378; principal; 2023-11-24 13:00)
DX: R19.7 Diarrhea, unspecified (principal); R14.0 Abdominal distension (gaseous); R11.2 Nausea with vomiting, unspecified; R10.11 Right upper quadrant pain
CPT/HCPCS: 45331; J2704; J3010

== ENCOUNTER → 2025-01-29 11:10 | Outpatient (CLI) | payer MEDICARE, SELFPAY ==
--- NOTE | 2025-01-29 11:13 | DI.MG.S_ITS ---
MM screening mammo BI: 01/29/2025. BI-RADS: 0 CLINICAL: 74-year old female for bilateral screening mammogram. Tyrer-Cuzick lifetime risk of 15.6%. Current reported family history of breast cancer: sister and second sister. Personal history of ovarian cancer. PRIOR EXAMS 09/18/2023, 08/25/2021, 02/25/2019, 02/03/2017. MAMMOGRAPHY TECHNIQUE: 2D and 3D (tomosynthesis) digital mammographic views obtained, with additional images as needed for full coverage. Current study was also evaluated with a Computer Aided Detection (CAD) system. DENSITY C. The breasts are heterogeneously dense, which may obscure small masses. MAMMOGRAPHY FINDINGS Right: Lower at 6:00, Middle depth, measuring 0.6 cm: Focal asymmetry needing additional imaging evaluation. Left: No suspicious mass, asymmetry, microcalcification, or other abnormality seen. No significant change from comparison. IMPRESSION: Right (Asymmetry): Lower at 6:00, Middle depth, measuring 0.6 cm * Incomplete - focal asymmetry needing additional imaging evaluation. Left * No evidence of malignancy. RECOMMENDATIONS Right: Lower at 6:00, Middle depth * Further evaluation with diagnostic mammography and diagnostic ultrasound. Ultrasound to be performed only if needed. OVERALL ASSESSMENT CATEGORY BI-RADS-0: Incomplete - Need Additional Imaging Evaluation. ELECTRONICALLY SIGNED: Jossy Rogers M.D. on 01/29/2025 at 03:11:22 PM PT Interpreting Station ID: [id number]
== END ==
PROVIDERS: Family Provider Obstetrics & Gynecology; PCP Physician Assistant; Referring Provider Physician Assistant; Visit Provider Physician Assistant
DX: Z12.31 Encounter for screening mammogram for malignant neoplasm of breast (principal); Z85.43 Personal history of malignant neoplasm of ovary; Z80.3 Family history of malignant neoplasm of breast; R92.333 Mammographic heterogeneous density, bilateral breasts
CPT/HCPCS: 77063; 77067

== ENCOUNTER → 2025-02-06 11:02 | Outpatient (CLI) | payer MEDICARE, SELFPAY ==
--- NOTE | 2025-02-06 11:06 | DI.RAD.S_ITS ---
PROCEDURE: XR KNEE RT 4V INDICATIONS: knee pain TECHNIQUE: Four views of the right knee were acquired. COMPARISON: None. FINDINGS: Bones: There are no osseous abnormalities. Joints: Moderate patellofemoral and medial tibial femoral degeneration appreciated. Small effusion noted. There is slight lateral patellar subluxation. Soft tissues: Normal IMPRESSION: Moderate patellofemoral and medial tibial femoral degeneration with small effusion Dictated by: Alberto Bennett M.D. on 02/07/2025 at 9:54 Approved by: Alberto Bennett M.D. on 02/07/2025 at 9:55
== END ==
PROVIDERS: Family Provider Obstetrics & Gynecology; PCP Physician Assistant; Referring Provider Family Medicine; Visit Provider Family Medicine
DX: M17.11 Unilateral primary osteoarthritis, right knee (principal); M25.561 Pain in right knee
CPT/HCPCS: 73564

== ENCOUNTER → 2025-04-04 09:30 | Outpatient (CLI) | payer MEDICARE, SELFPAY ==
--- NOTE | 2025-04-04 09:31 | DI.MG.S_ITS ---
MM diagnostic mammo unilat RT, US breast RT limited: 04/04/2025 BI-RADS: 2 CLINICAL: 74-year old female for right diagnostic mammogram and right diagnostic breast ultrasound that is a recall from screening on 01/29/2025. Tyrer-Cuzick lifetime risk of 15.6%. Current reported family history of breast cancer: sister and second sister. Personal history of ovarian cancer. PRIOR EXAMS Mammogram(s): 01/29/2025. Four Other Exams on 09/18/2023, 08/25/2021, 02/25/2019, 02/03/2017. MAMMOGRAPHY TECHNIQUE: 2D and 3D (tomosynthesis) digital mammographic views obtained, with additional images as needed for full coverage. Current study was also evaluated with a Computer Aided Detection (CAD) system. ULTRASOUND TECHNIQUE Real-time paris scale and color doppler imaging of the area of clinical interest was performed with image documentation. TARGETED Right Breast Ultrasound: Real-time ultrasound exam was performed focused to area of clinical and/or imaging concern. DENSITY Right: C. The breasts are heterogeneously dense, which may obscure small masses. MAMMOGRAPHY FINDINGS Right (finding-1): Lower at 6:00: 0.5 cm oval asymmetry. It is equal density and circumscribed with smooth margins. This finding persists with additional views. ULTRASOUND FINDINGS Right (finding-1): Lower Outer at 7:00, 5 cm from nipple, measuring 0.5 x 0.4 x 0.3 cm: Correlating with findings on mammogram there is a cyst with artifacts showing posterior acoustic enhancement. Doppler shows no vascularity. IMPRESSION: Right * There is a benign ultrasound correlate to the mammographic finding. No further follow up needed. * No evidence of malignancy with benign findings. RECOMMENDATIONS Bilateral * Annual screening mammography. COMMENTS: Findings and recommendations were conveyed to the patient during today's evaluation. OVERALL ASSESSMENT CATEGORY BI-RADS-2: Benign. The [employer] recommends annual screening mammography beginning at age 40 for women with average risk of breast cancer. ELECTRONICALLY SIGNED: Cherie Alexander M.D. on 04/05/2025 at 12:23:33 AM PT Interpreting Station ID: [id number]
== END ==
LOC: MAMMO 09:31
PROVIDERS: Family Provider Obstetrics & Gynecology; PCP Physician Assistant; Referring Provider Physician Assistant; Visit Provider Physician Assistant
DX: R92.8 Other abnormal and inconclusive findings on diagnostic imaging of breast (principal); N60.01 Solitary cyst of right breast; R92.331 Mammographic heterogeneous density, right breast; Z80.3 Family history of malignant neoplasm of breast; Z85.43 Personal history of malignant neoplasm of ovary
CPT/HCPCS: 76642; 77065; G0279